=== PATIENT | male | born 1945 | race Caucasian/White ===

== ENCOUNTER 2016-09-25 13:56 | Emergency (ER) | payer MEDICARE, OTHER ==
--- NOTE | ~2016-09-25 | ER ---
PATIENT'S NAME: EDYTA RODRIGUEZ [facility] AGE: 71 Y [address] ROOM: [place] [address] LOCATION: [facility] ADMIT DATE: 09/25/2016 ER/Outpatient Report DISCHARGE DATE: 09/25/2016 FAMILY PHYSICIAN: Mayank Knight MD ATTENDING PHYSICIAN: Mark Walker CHIEF COMPLAINT: Abdominal bloating. HISTORY OF PRESENT ILLNESS: The patient states that this has been going on for a week. He was seen in the emergency department in [place] on Sunday morning or Sunday morning for same. At that time, he received labs and a CT scan of the abdomen. He denies any fevers or chills, but states that they told him he may have to have some surgery on his bowel but started him on Bentyl, which he states makes him sleepy but otherwise discharged him home. They told him to see his primary care doctor. He feels like he is not getting better. He does not like how the Bentyl is making him feel, and he feels like he wants a 2nd opinion. He drove from [place] today for that. There are no new symptoms. He has an extensive abdominal surgical history, but states he has been passing soft stool. It is low in volume, but he is passing stool and gas. He has been taking some stool softeners and to be using enemas as well. The pain is very minimal at this time. PAST MEDICAL HISTORY: Documented on the record and reviewed by me. SOCIAL HISTORY: Documented on the record and reviewed by me. MEDICATIONS: Documented on the record and reviewed by me. ALLERGIES: DOCUMENTED ON THE RECORD AND REVIEWED BY ME. REVIEW OF SYSTEMS: All system were reviewed and negative except as noted in the HPI. PHYSICAL EXAMINATION: VITAL SIGNS: Blood pressure 150/80, pulse 56, respiratory rate is 20, temperature 97.3, SpO2 is 96% on room air. Pain is rated at 1/10. GENERAL: Age-appropriate male, resting comfortably and relaxed on a chair next to the bed, in no obvious pain or distress. NEUROLOGIC: Awake and alert. GCS is 15. No focal deficits or asymmetry are PATIENT'S NAME: EDYTA RODRIGUEZ [facility] AGE: 71 Y [address] ROOM: [place] [address] LOCATION: [facility] ADMIT DATE: 09/25/2016 ER/Outpatient Report DISCHARGE DATE: 09/25/2016 FAMILY PHYSICIAN: Mayank Knight MD ATTENDING PHYSICIAN: Mark Walker obvious on exam. HEENT: Normocephalic and atraumatic. Eyes are PERRL. Oropharynx is clear. NECK: Supple. Trachea is midline. CHEST/HEART: Regular rate and rhythm. No murmurs. LUNGS: Clear to auscultation bilateral with no rhonchi, wheezes, or rales. ABDOMEN: Soft, nontender, and nondistended. No masses or megaly or rebound. Bowel sounds are present. The abdomen has a surgical scar along the left flank. There is some tenderness extremely mildly focal point tenderness in the anterior axillary line just above the scar. No masses appreciated with it. BACK: Nontender to palpation throughout. No CVA tenderness. No other masses appreciated. EXTREMITIES: Warm and well perfused with no obvious abnormalities. SKIN: Warm, dry, and intact. LABS AND X-RAYS: Upright abdomen was obtained and negative for bowel obstructive pattern per my read. Basic labs were obtained. Urinalysis with 25 leukocytes, 30 protein, 10 blood. Micro: 2 to 5 wbc's, 2 to 5 rbc's, 0-2 epithelial cells, rare bacteria. WBC 6.5, hemoglobin is 13.4, platelets of 202. His CMS is unremarkable, other than a creatinine of 1.7 and GFR 40. IMPRESSION: Gas and bloating without obstruction. EMERGENCY DEPARTMENT COURSE: The patient was seen and evaluated as above. His presentation is not consistent with renal stones. We have obtained read of the CT scan and labs from [place]. His renal function appears to be unchanged from that visit. CT scan did not reveal any intraabdominal processes except for diverticulosis. With no significant changes, no pain, fever, or other infectious signs or symptoms, I do not think that he has diverticulitis. He does not have any renal stones that would be causing his symptoms, since there has been no change since the onset. He does feel some relief with his enemas. For this reason, I have recommend he use the Bentyl if he feels it is helping. I will give him a prescription for MiraLAX and recommend he titrate until bowel movement. He should follow up with his usual provider as needed. All questions were answered and the patient was discharged in good condition. MD TABITHA LIM/candi PATIENT'S NAME: EDYTA RODRIGUEZ [facility] AGE: 71 Y [address] ROOM: [place] [address] LOCATION: [facility] ADMIT DATE: 09/25/2016 ER/Outpatient Report DISCHARGE DATE: 09/25/2016 FAMILY PHYSICIAN: Mayank Knight MD ATTENDING PHYSICIAN: Mark Walker /[id number] d: 09/26/16 1240 t: 10/10/16 0804, OUTPATIENT REPORT
[2016-09-25 15:41] LABS: BASOPHIL # 0.1 K/uL (0.0-0.2); BASOPHIL % 0.9 %; EOSINOPHIL # 0.1 K/uL (0.0-0.5); HEMATOCRIT 39.9 % (37.0-53.0); HEMOGLOBIN 13.4 g/dL (11.0-16.0); IMMATURE GRANULOCYTE % 0.5 %; LYMPHOCYTE # 1.4 K/uL (0.8-4.0); LYMPHOCYTE % 21.8 %; MCH 30.5 pg (27.0-34.0); MCHC 33.6 gm/dL (32.0-36.5); MCV 90.9 fl (83.0-98.0); MONOCYTE # 0.5 K/uL (0.0-1.0); MONOCYTE % 6.9 %; MPV 9.1 fl (9.4-12.4); NEUTROPHIL # (ANC) 4.4 K/uL (1.4-9.0); NEUTROPHIL % 67.9 %; NRBC % 0 /100WBC (0-0.00); PLATELET COUNT 202 K/uL (150-450); RBC 4.39 M/uL (3.50-5.50); RDW-CV 13.2 % (11.9-14.6); WBC 6.5 K/uL (4.0-11.0)
[2016-09-25 15:55] LABS: ALBUMIN 3.8 gm/dL (3.5-5.0); ANION GAP 9.8 (10.0-19.0); CALCIUM 8.8 mg/dL (8.5-10.5); CREATININE 1.7 mg/dL (0.6-1.3); POTASSIUM 3.8 mMol/L (3.7-5.1); TOTAL BILIRUBIN 0.7 mg/dL (0.0-1.5); TOTAL PROTEIN 7.2 g/dL (6.0-8.4)
[2016-09-25 16:23] LABS: BILIRUBIN URINE NEGATIVE (NEGATIVE); BLOOD URINE 10 /UL (NEGATIVE); COLOR URINE YELLOW (YELLOW); GLUCOSE URINE NEGATIVE (NEGATIVE); KETONE URINE NEGATIVE (NEGATIVE); LEUKOCYTES URINE 25 /UL (NEGATIVE); NITRITE URINE NEGATIVE (NEGATIVE); PROTEIN URINE 30 mg/dL (NEGATIVE); TURBIDITY URINE CLEAR (CLEAR); UROBILINOGEN URINE NORMAL (NORMAL)
[2016-09-25 16:36] LABS: AMORPHOUS URINE 1+ (NEGATIVE); BACTERIA URINE RARE (NEGATIVE); EPITHELIAL URINE 0-2 #/HPF (NEGATIVE); WBC CLUMPS URINE RARE (NEGATIVE)
[2016-09-25 16:37] LABS: HYALINE CAST URINE 0-2 #/LPF (NEGATIVE)
== END 2016-09-25 16:55 | disposition disaster alternative care site (69) ==
LOC: GMED 13:56
PROVIDERS: Emergency Medicine
DX: R14.0 Abdominal distension (gaseous) (principal)